=== PATIENT | female | born 1945 | race Caucasian/White ===

== ENCOUNTER 2023-07-04 13:42 | Emergency (ER) | payer OTHER ==
[~2023-07-04] VITALS: Ht 154.9 cm; Wt 49.9 kg
[2023-07-04 15:05] VITALS: BP 119/72; PULSE 89; RESP 18; O2SAT 99
[2023-07-04] MEDS ORDERED: TRAM50TA4 PO (15:30)
== END 2023-07-04 15:57 | disposition home or self-care (01) ==
LOC: EDH 13:42
DX: S92.351A Displaced fracture of fifth metatarsal bone, right foot, initial encounter for closed fracture (principal); Z90.49 Acquired absence of other specified parts of digestive tract; Z90.710 Acquired absence of both cervix and uterus; X50.1XXA Overexertion from prolonged static or awkward postures, initial encounter; Y93.89 Activity, other specified; Y92.89 Other specified places as the place of occurrence of the external cause; Y99.8 Other external cause status
CPT/HCPCS: 73630